=== PATIENT | male | born 1995 | race Caucasian/White ===

== ENCOUNTER 2021-01-05 19:50 | Emergency (ER) | payer MEDICAID ==
[~2021-01-05] VITALS: Ht 177.8 cm; Wt 67.9 kg
[2021-01-05] MEDS ORDERED: ONDANSETRON 4MG ODT PO STA (20:55)
[2021-01-05] MEDS ORDERED: KETOROLAC 60MG/2ML VIAL IM STA (20:55)
[2021-01-05 21:50] LABS: CLARITY URINE CLEAR (CLEAR); COLOR URINE YELLOW (YELLOW); KETONES URINE TRACE (NEGATIVE); LEUKOCYTE ESTERASE URINE NEGATIVE (NEGATIVE); NITRITE URINE NEGATIVE (NEGATIVE); OCCULT BLOOD URINE NEGATIVE (NEGATIVE); PROTEIN URINE TRACE (NEGATIVE); SPECIFIC GRAVITY URINE 1.022 (1.005-1.030); UROBILINOGEN URINE 0.2 E.U./dL (0.2-1.0)
[2021-01-05 21:51] LABS: BASOPHILS % 0.4 % (0.0-2.0); EOSINOPHILS % 0.7 % (0.0-5.0); HEMATOCRIT. 47.9 % (42.0-52.0); LYMPHOCYTES % 34.3 % (20.0-50.0); MEAN CORPUSCULAR HEMOGLOBIN 30.9 pg (28.0-32.0); MEAN CORPUSCULAR VOLUME 87.1 fL (80.0-94.0); MEAN PLATELET VOLUME 7.8 fl (7.4-10.4); NEUTROPHILS % 54.6 % (40.0-76.0); PLATELET 358 x1000/uL (130-400); RED BLOOD CELL COUNT 5.49 mill/uL (4.7-6.1); RED CELL DISTRIBUTION WIDTH 12.9 % (11.6-14.6)
[2021-01-05 21:56] LABS: CHLORIDE 106 mEq/L (98-107)
[2021-01-05] MEDS ORDERED: OMEP40CA12 MT (22:44)
[2021-01-05] MEDS ORDERED: ONDA4TAB5 MT (22:45)
[2021-01-05 22:50] VITALS: BP 125/76
== END 2021-01-05 22:51 | disposition home or self-care (01) ==
LOC: ER 19:50
DX: R10.9 Unspecified abdominal pain (principal)
CPT/HCPCS: 36415; 74176; 80053; 81003; 83690; 85025; 96372; 99284; J1885; Q0162